=== PATIENT | male | born 1970 | race Caucasian/White ===

== ENCOUNTER 2018-03-04 23:48 | Emergency (ER) | payer SELFPAY ==
[~2018-03-04] VITALS: Ht 177.8 cm; Wt 88.9 kg
[2018-03-05 00:01] VITALS: BP 183/112
== END 2018-03-05 01:21 | disposition home or self-care (01) ==
LOC: ER 23:49
DX: K08.89 Other specified disorders of teeth and supporting structures (principal); I10 Essential (primary) hypertension; J44.9 Chronic obstructive pulmonary disease, unspecified; G89.29 Other chronic pain; Z98.890 Other specified postprocedural states; Z56.0 Unemployment, unspecified
CPT/HCPCS: 99281